=== PATIENT | male | born 1975 | race Caucasian/White ===

== ENCOUNTER 2018-03-28 19:06 | Emergency (ER) | payer BC ==
[~2018-03-28] VITALS: Ht 177.8 cm; Wt 91.0 kg
[2018-03-29] MEDS ORDERED: KETOROLAC 30MG/ML VIAL IM ONE (03:15)
[2018-03-29 05:00] VITALS: BP 137/88
== END 2018-03-29 05:00 | disposition home or self-care (01) ==
LOC: ER 19:06
DX: S16.1XXA Strain of muscle, fascia and tendon at neck level, initial encounter (principal); S39.012A Strain of muscle, fascia and tendon of lower back, initial encounter; V49.09XA Driver injured in collision with other motor vehicles in nontraffic accident, initial encounter; Y93.89 Activity, other specified; Y92.89 Other specified places as the place of occurrence of the external cause; Y99.8 Other external cause status
CPT/HCPCS: 72070; 72100; 96372; 99284; J1885